=== PATIENT | female | born 1950 | race Caucasian/White ===

== ENCOUNTER → 2016-12-02 | Outpatient (CLI) | payer MEDICARE ==
--- NOTE | 2016-12-02 10:10 | REPMRS ---
Patient History The patient states she had a clinical breast exam in 11/30 No known family history of cancer. Took estrogen for 4 years beginning at age 61. Taking unspecified hormones for 5 years. Digital Woman Screen Mammo: December 02, 2016 - Exam #: [id number] Bilateral CC and MLO view(s) were taken. Technologist: Gina Flores, Technologist Prior study comparison: December 01, 2015, digital woman screen mammo performed at [facility]. November 28, 2014, digital woman screen mammo performed at [facility]. November 26, 2013, digital woman screen mammo performed at [facility]. FINDINGS: There are scattered fibroglandular densities. There has been no change in the appearance of the mammogram from the prior studies. There is a mild amount of scattered fibroglandular density which is fairly symmetric. There is no interval development of dominant mass, architectural distortion, or clustered microcalcification suggestive of malignancy. ASSESSMENT: BI-RADS/ACR category 1 mammogram. Negative. Recommendation Routine screening mammogram in 1 year (for women over age 40). This mammogram was interpreted with the aid of an FDA-approved computer-aided dectection system. Electronically Signed By: Yung Whitley MD 12/02/16 0685
--- NOTE | 2016-12-03 10:06 | DEXA ---
AP SPINE L1 - L4 0.928 -2.2 -0.9 LT FEMUR TOTAL 0.896 -0.9 0.1 RT FEMUR TOTAL 0.900 -0.9 0.1 TOTAL BODY TOTAL OTHER DUAL FEMUR FRAX* ASSESSMENT Risk factors: Family history (parent hip fracture). 10 year probability of fracture Major osteoporotic fracture 15.8 % Hip fracture 0.9 % COMMENTS: There is low bone density of the spine and hips. FOLLOW-UP: Recommendation for the next bone density exam: 2 years. ANNEL
== END ==
LOC: M WHC 09:08
PROVIDERS: ATTEND Nurse Practitioner Family
DX: Z01.419 Encounter for gynecological examination (general) (routine) without abnormal findings (principal); Z12.31 Encounter for screening mammogram for malignant neoplasm of breast; M81.0 Age-related osteoporosis without current pathological fracture; Z92.0 Personal history of contraception; Z12.12 Encounter for screening for malignant neoplasm of rectum
CPT/HCPCS: 77080; 82270; G0101; G0202

== ENCOUNTER → 2017-12-05 | Outpatient (CLI) | payer MEDICARE | LOC: M WHC 08:58 | DX: Z01.419 Encounter for gynecological examination (general) (routine) without abnormal findings (principal); Z12.31 Encounter for screening mammogram for malignant neoplasm of breast (principal); Z12.12 Encounter for screening for malignant neoplasm of rectum | CPT/HCPCS: 77067 ==

== ENCOUNTER → 2018-12-05 | Outpatient (CLI) | payer MEDICARE ==
--- NOTE | 2018-12-05 14:45 | REPMRS ---
Patient History The patient states she had a clinical breast exam in 11/2018. No known family history of cancer. Took estrogen for 4 years beginning at age 61. Took unspecified hormones for 6 years 6 months. Digital Woman Screen Mammo: December 05, 2018 - Exam #: [id number] Bilateral CC and MLO view(s) were taken. Technologist: Roxane Dominguez Technologist Prior study comparison: December 05, 2017, digital woman screen mammo performed at [facility]. December 02, 2016, digital woman screen mammo performed at [facility]. December 01, 2015, digital woman screen mammo performed at [facility]. FINDINGS: There are scattered fibroglandular densities. There has been no change in the appearance of the mammogram from the prior studies. There is a mild amount of scattered fibroglandular density which is fairly symmetric. There is no interval development of dominant mass, architectural distortion, or clustered microcalcification suggestive of malignancy. 3-D tomosynthesis shows no additional findings. Assessment: BI-RADS/ACR category 1 mammogram. Negative Mammogram. Recommendation Routine screening mammogram of both breasts in 1 year (for women over age 40). This patient's Lifetime Breast Cancer RIsk is estimated at 5.1 %. This mammogram was interpreted with the aid of an FDA-approved computer-aided dectection system. Electronically Signed By: Yung Whitley MD 12/05/18 [id number]
== END ==
LOC: M WHC 09:12
PROVIDERS: ATTEND Nurse Practitioner Family
DX: Z12.31 Encounter for screening mammogram for malignant neoplasm of breast (principal); Z92.23 Personal history of estrogen therapy; Z92.29 Personal history of other drug therapy

== ENCOUNTER → 2019-12-13 | Outpatient (CLI) | payer MEDICARE ==
--- NOTE | 2019-12-13 10:35 | REP ---
BILATERAL SCREENING DIGITAL MAMMOGRAM WITH 3D TOMOSYNTHESIS: There are no palpable abnormalities or other breast complaints. The the patient states she had a clinical breast examination November,. The Tyrer-Cuzick Score is: The 4.9% . Comparison is 11/26/2013. There are scattered areas of fibroglandular density. There is no dominant mass, micro calcific cluster or architectural distortion that would indicate malignancy. There are no additional findings on 3D tomosynthesiss. There is no change from the prior study. Impression: BIRADS/ACR category 1 mammogram. Negative. Recommendation: Routine annual screening mammography. This mammogram was interpreted with the aid of a FDA approved computer-aided detection system. A. Negative mammogram reports should not delay biopsy if a dominant or clinically suspicious mass is present. B. Not all breast cancers are identified by mammography or tomosynthesis. C. Adenosis and dense breasts may obscure an underlying neoplasm. Patient letter M1. Electronically Signed by Pepito Shipley MD 12/13/2019 10:27 A
== END ==
LOC: M WHC 09:20
PROVIDERS: ATTEND Nurse Practitioner Family
DX: Z12.31 Encounter for screening mammogram for malignant neoplasm of breast (principal)

== ENCOUNTER → 2019-12-26 | Outpatient (CLI) | payer MEDICARE ==
--- NOTE | 2019-12-26 12:18 | REP ---
Clinical: Pelvic mass. Technique: Transabdominal pelvic ultrasound followed by transvaginal examination for better evaluation of the endometrium and adnexa. Findings: Evidence of prior partial hysterectomy. Right ovary not visualized. There is a large complex cystic lesion in the left adnexa measuring 6.8 x 4.8 x 6.3 cm with elements of soft tissue, debris, and vascularity. Differential diagnosis includes dermoid and cystadenoma. Impression: Large complex left adnexal mass. Consider contrast enhanced CT for further investigation.
--- NOTE | 2019-12-31 15:24 | DEXA ---
AP SPINE L1 - L4 0.908 -2.3 -0.7 LT FEMUR TOTAL 0.844 -1.3 0.1 LT NECK 0.860 -1.3 0.3 RT FEMUR TOTAL 0.875 -1.1 0.3 RT NECK 0.824 -1.5 0.1 TOTAL BODY TOTAL OTHER COMMENTS: There is low bone density of the spine and hips. The density of the spine has decreased 1.1% since the initial exam on 12/30/2004. The spine density has decreased 2.2% since the most recent exam on 12/02/2016. The density of the left hip has decreased 10.1% since the initial exam on 12/30/2004. The density of the left hip has decreased 5.8% since the most recent exam on 12/02/2016. The density of the right hip has decreased 5.7% since the initial exam on 12/30/2004. The density of the right hip has decreased 2.8% since the most recent exam on 12/02/2016. FOLLOW-UP: Recommendation for the next bone density exam: 2 years. JAYD
== END ==
LOC: M WHC 09:52
PROVIDERS: ATTEND Nurse Practitioner Family
DX: R19.00 Intra-abdominal and pelvic swelling, mass and lump, unspecified site (principal); M85.89 Other specified disorders of bone density and structure, multiple sites

== ENCOUNTER → 2020-01-03 | Outpatient (CLI) | payer MEDICARE ==
[~2020-01-03] MED LIST: GASTROGRAFIN SOLUTION 30ML (Q9963) As Ordered ONE; ISOVUE-370 76% 100ML VIAL (Q9967) As Ordered ONE
--- NOTE | 2020-01-04 08:13 | REP ---
A CT ABDOMEN AND PELVIS WITH IV AND ORAL CONTRAST: HISTORY: Left adnexal mass per ultrasound. Comparison pelvic sonography December 26, 2019. CT CONTRAST DOSE: 100 mL of intravenous Isovue 370. CT FINDINGS: Preliminary digital scrum master radiograph is unremarkable. The lung bases show minimal linear fibrotic change but are otherwise clear. There is no evidence of pleural effusion or upper abdominal ascites. There are three or four small hepatic cysts. The largest of these is in the right lobe posteriorly measuring 1.5 cm in greatest diameter. There are cortical cysts bilaterally, one in each kidney. The largest of these is in the right kidney measuring 1.6 cm in greatest diameter. The kidneys enhance symmetrically and are otherwise morphologically intact. No abnormalities noted in the pancreas. No abnormalities seen in the gallbladder. The spleen is homogeneous in texture and normal in size. No retroperitoneal mass or adenopathy is observed. Small and large intestinal bowel loops are normal in the upper abdomen. Normal appendix is seen. Pelvic CT images demonstrate a slightly septated complex cystic mass in the central pelvis corresponding to the ultrasound findings. This measures 6.6 x 5.9 x 6.1 cm and is seen occupying the central pelvis. There is some mural thickening and enhancement along the anterior wall and septation is seen along the right wall of the lesion. There is evidence of some normal streak-like ovarian tissue bilaterally but the lesion appears to be contiguous with a right ovarian tissue rather than left. There is no evidence of free fluid. No pelvic adenopathy is seen. Small and large bowel loops are normal in the pelvis. A vaginal pessary is noted in place. Urinary bladder is unremarkable. No abdominal wall defect is seen. No bony destructive lesion is noted. IMPRESSION: Complex 6.6 cm cystic mass in the pelvis likely ovarian in origin. Ovarian neoplasm must be suspected. There is no visible adenopathy or ascites. Electronically Signed by Mitchell Whitley MD 01/04/2020 09:43 A
== END ==
LOC: M RAD 15:05
PROVIDERS: ATTEND Nurse Practitioner Family
DX: R19.07 Generalized intra-abdominal and pelvic swelling, mass and lump (principal); N94.89 Other specified conditions associated with female genital organs and menstrual cycle
CPT/HCPCS: 74177; Q9963; Q9967

== ENCOUNTER → 2020-12-15 | Outpatient (CLI) | payer MEDICARE ==
--- NOTE | 2020-12-15 11:06 | REPMRS ---
Patient History The patient states she had a clinical breast exam in 12/2020 No known family history of cancer. Took estrogen for 4 years beginning at age 61. Took unspecified hormones for 6 years 6 months. Digital Woman Screen Mammo: December 15, 2020 - Exam #: [id number] Bilateral CC and MLO view(s) were taken. Technologist: Gina Flores, Technologist Prior study comparison: December 13, 2019, bilateral digital woman screen mammo performed at [facility]. December 05, 2018, bilateral digital woman screen mammo performed at [facility]. December 05, 2017, digital woman screen mammo performed at [facility]. FINDINGS: The breast tissue is almost entirely fat. The Volpara volumetric breast density category is: A. There has been no change in the appearance of the mammogram from the prior studies. There is no interval development of dominant mass, architectural distortion, or grouped microcalcification typical of malignancy. 3-D tomosynthesis shows no additional findings. Assessment: BI-RADS/ACR category 1 mammogram. Negative Mammogram. Recommendation Routine screening mammogram of both breasts in 1 year (for women over age 40). This [facility] Lifetime Breast Cancer RIsk is estimated at 4.6 %. This mammogram was interpreted with the aid of an FDA-approved computer-aided dectection system. Electronically Signed By: Yung Whitley MD 12/15/20 [id number]
== END ==
LOC: M WHC 09:59
PROVIDERS: ATTEND Nurse Practitioner Family
DX: Z12.31 Encounter for screening mammogram for malignant neoplasm of breast (principal); Z92.23 Personal history of estrogen therapy; Z92.29 Personal history of other drug therapy

== ENCOUNTER → 2021-12-31 | Outpatient (CLI) | payer MEDICARE | LOC: M WHC 09:07 | PROVIDERS: ATTEND Nurse Practitioner Women's Health | DX: Z12.31 Encounter for screening mammogram for malignant neoplasm of breast (principal); Z78.0 Asymptomatic menopausal state; Z92.23 Personal history of estrogen therapy; Z92.29 Personal history of other drug therapy ==

== ENCOUNTER → 2022-10-29 | Outpatient (REF) | payer MEDICARE | LOC: M SFHCWAGY 11:15 | PROVIDERS: ATTEND Advanced Practice Midwife | DX: N89.8 Other specified noninflammatory disorders of vagina (principal) ==

== ENCOUNTER → 2023-09-07 | Outpatient (CLI) | payer MEDICARE | LOC: M WHC 09:13 | PROVIDERS: ATTEND Advanced Practice Midwife | DX: Z12.31 Encounter for screening mammogram for malignant neoplasm of breast (principal) ==

== ENCOUNTER → 2023-09-15 | Outpatient (REF) | payer MEDICARE | LOC: M PLALAB 12:06 | PROVIDERS: ATTEND Advanced Practice Midwife | DX: N90.89 Other specified noninflammatory disorders of vulva and perineum (principal) ==

== ENCOUNTER → 2024-09-12 | Outpatient (CLI) | payer MEDICARE | LOC: M WHC 08:29 | PROVIDERS: ATTEND Advanced Practice Midwife | DX: Z12.31 Encounter for screening mammogram for malignant neoplasm of breast (principal); Z13.820 Encounter for screening for osteoporosis; M85.80 Other specified disorders of bone density and structure, unspecified site ==

== ENCOUNTER → 2024-09-12 | Outpatient (CLI) | payer MEDICARE | LOC: M WHC 08:28 | PROVIDERS: ATTEND Advanced Practice Midwife | DX: Z12.31 Encounter for screening mammogram for malignant neoplasm of breast (principal); Z13.820 Encounter for screening for osteoporosis; R92.323 Mammographic fibroglandular density, bilateral breasts ==

== ENCOUNTER → 2025-09-13 | Outpatient (CLI) | payer MEDICARE | LOC: M WHC 09:41 | PROVIDERS: ATTEND Advanced Practice Midwife | DX: Z12.31 Encounter for screening mammogram for malignant neoplasm of breast (principal); R92.323 Mammographic fibroglandular density, bilateral breasts ==